=== PATIENT | male | born 2005 | race Caucasian/White ===

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

== ENCOUNTER 2025-04-14 12:23 | Outpatient (CLI) | payer OTHER, SELFPAY ==
--- NOTE | 2025-04-28 13:02 | W.PM.SLEEP ---
Sleep Study Details Details Interpreting Provider: Kacey Date of Sleep Study: 04/14/25 Sleep Study Details: STUDY TYPE:? Home unattended ? BMI:? 33.47 ORDERING PROVIDER:? Garrett INDICATION:? Concern for sleep apnea ? SLEEP SUMMARY:? 482 minutes RESPIRATORY SUMMARY:? AHI 9.3 per rule 1A, 4.2 per CMS guideline Low oxygen 82 0.9% of study oxygen less than 90% Snoring 100% PERIODIC LIMB MOVEMENTS OF SLEEP:? Not recorded CARDIAC:? Range 41-90, mean 51.8 beats per minute IMPRESSION:? Mild obstructive sleep apnea RECOMMENDATION: Treatment options include CPAP, dental appliance and/or airway expansion surgery. Weight loss may be of some benefit also.
== END 2025-04-14 12:24 | disposition home or self-care (01) ==
LOC: SLEEP 12:24
PROVIDERS: PCP Family Medicine; Visit Provider Family Medicine
DX: G47.33 Obstructive sleep apnea (adult) (pediatric) (principal)
CPT/HCPCS: 95806